=== PATIENT | male | born 1950 | race Caucasian/White ===

== ENCOUNTER 2020-01-05 06:59 | Day surgery (SDC) | payer OTHER, MEDICARE ==
[~2020-01-05] VITALS: Ht 180.3 cm; Wt 136.1 kg
--- NOTE | ~2020-01-05 | O ---
[facility] [place] [address] OPERATIVE REPORT Name: REHAN JACOBSON Room #: 150-2 [facility].#: [id number] Admission: 01/05/20 Attend Phys: Oscar Max MD Discharge: Date of : 50 Report #: [id number] THIS REPORT FOR: cc: ELIZABETH TAYLOR Physician not on staff Oscar Max MD ~ CC: Dr. 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 PROCEDURE: Enucleation of left eye with implantation of 20 mm Medpor sphere with muscles attached to implant, conjunctivoplasty, and temporary tarsorrhaphy. SURGEON: Oscar Max MD. NEEDLE PUNCH MACHINE OPERATOR HELPER: None. ANESTHESIA: General. COMPLICATIONS: None. INDICATIONS FOR SURGERY: This pleasant 69-year-old gentleman is blinded from trauma to his left eye when he was a toddler. His eye has only recently become severely uncomfortable. He presents today for removal of the blind left eye in rehabilitation of the socket to such a degree that he will be able to wear prosthesis. Informed consent was obtained to include but not limited to potential risk for loss of vision, bleeding, infection, failure to improve the problem, the potential need for further surgery or treatment. DESCRIPTION OF PROCEDURE: The patient was taken to the operating room where general anesthesia was administered. The left socket was then anesthetized with Xylocaine with epinephrine mixed with Marcaine and Wydase. The additional anesthetic was administered to the retrobulbar space. An injection anteriorly was much more challenging because of the severe scarring around the limbus, which limited the amount of conjunctiva that could be salvaged. The patient was subsequently prepped and draped in the usual sterile fashion. A lid speculum [facility] [address] [place] [address] OPERATIVE REPORT Name: REHAN JACOBSON Room #: 150-2 [facility]#: [id number] Admission: 01/05/20 Attend Phys: Oscar Max MD Discharge: Date of : 50 Report #: [id number] was placed on the left eye. A 360-degree conjunctival peritomy was performed trying to save as much of the conjunctiva as possible. The oblique quadrants were then bluntly dissected, but were severely scarred from his prior interventions trying to save his eye. The lateral rectus muscle was isolated on a muscle hook and cleaned of its surrounding connective tissue. A double arm pass from a 5-0 Vicryl suture was passed through its insertion. The muscle was then transected from the globe, which revealed the encircling element from his prior retinal detachment surgery. The inferior medial and superior rectus muscles were similarly isolated and secured with double arm 5-0 Vicryl suture passes with locking bites at each margin. The dissection was carried around posteriorly, so that the optic nerve could be approached. The optic nerve was clamped for 3 minutes. The clamp was released and replaced for 3 more minutes. It was released and reclamped one more time for 3 more minutes. The optic nerve was then cut. The superior oblique and inferior oblique muscles were cut with cutting cautery where they attached to the globe. Minimal bleeding ensued. A 20 mm sizing sphere fit behind posterior Tenon's capsule, so a 20 mm Medpor sphere was then vacuum aspirated in antibiotic irrigation solution. It was then reposited behind posterior Tenon's with the aid of an easy glide introducer. Posterior Tenon's were then closed over the implant with interrupted 5-0 Vicryl sutures. The medial and lateral rectus muscles were then brought together to each other and secured with interrupted 5-0 Vicryl sutures. The superior and inferior rectus muscles were then advanced to the medial and lateral rectus muscles and secured with interrupted 5-0 Vicryl sutures. The anterior Tenon's were then closed with interrupted 5-0 Vicryl sutures. At this point, the socket was inspected and the viable conjunctiva estimated. A conjunctivoplasty was performed by drawing a relaxing incision inferotemporally and then rotating the conjunctiva inferomedially to get the deficient conjunctiva to stretch far enough to close over the anterior Tenon's closure. A running 6-0 Vicryl suture was used to close this conjunctivoplasty. A medium size conformer was placed followed by erythromycin ointment. A temporary tarsorrhaphy was then fashioned from a short section of IV tubing and a double arm pass from a 5-0 nylon suture. A Telfa pad was then placed on the eye followed by 2 eye pads, which were held in place with silk tape and Mastisol. The patient was subsequently transported to the recovery area having tolerated the procedures well with no anesthetic or operative complications being noted. By: [id number] Oscar Max MD /nt
[~2020-01-05 06:59] MED LIST: CALCIUM500 MG PO; LISINOPRIL10 MG PO; MULTIPLE VITAM1 EAC4 PO
[2020-01-05 07:32] VITALS: BP 130/58
--- NOTE | 2020-01-10 09:35 | PATH ---
[facility] [address] [place] [address] PATHOLOGY RPT PROCEDURE Name: REHAN VILLAVICENCIO Room #: [facility] M.R.#: [id number] Admission: 01/05/20 Date of : 50 Discharge: 01/05/20 Report #: [id number] Path Case #: [id number] [facility] Accession Number: [id number] . 01 Material submitted: . eye - LEFT EYE SUTURE AT LEFT LATERAL RECTUS. Modifiers: left . 01 Clinical history: . Enucleation left eye Blind painful left eye suture at left lateral rectus History of remote trauma with recent retinal detachment Scleral buckle is still on the globe . 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 (IUV:vasiliy; 01/09/2020) QMS 01/09/2020 1349 Local . 02 Electronically signed: . Bhavana Ramirez MD, Pathologist NPI- [id number] . 01 Gross description: . The specimen is received in formalin, labeled "Rehan Villavicencio, left eye" and consists of an enucleation specimen measuring 2.8 x 2.7 x 2.7 cm with attached optic nerve measuring 0.5 cm in length and 0.7 cm in diameter. There is a suture designating the left lateral rectus. The cornea is Dome shaped, black-brown and cloudy. It is sectioned revealing no lens. The choroid layer is smooth borja-brown with no gross lesions. The vitreous is clear. A full-thickness labor service representative section through the sutured area to include the optic nerve is submitted in A1. (SDY; 01/06/2020) SYU/SYU 01/06/2020 1434 Local . 02 Pathologist provided ICD-10: H16.002, L85.9, H16.402 . 02 CPT . 940473 Specimen Comment: A courtesy copy of this report has been sent to [phone] Specimen Comment: Report sent to Specimen Comment: A duplicate report has been generated due to demographic updates. Performed at: [address] [place] [address] PATHOLOGY RPT PROCEDURE Name: REHAN VILLAVICENCIO Room #: [facility] M.R.#: [id number] Admission: 01/05/20 Date of : 50 Discharge: 01/05/20 Report #: [id number] Path Case #: [id number] [facility] [place] [address] [place] [address] [address], [place], [place] [id number] MD Darryl Sellers MD Phone: [phone] Performed at: [address] [id number] MD Bhavana Ramirez MD Phone: [phone]
== END 2020-01-05 10:15 | disposition home or self-care (01) ==
LOC: OR 06:59 → TBA 07:00 → OR 09:40
DX: H57.12 Ocular pain, left eye (principal); H16.002 Unspecified corneal ulcer, left eye; H16.402 Unspecified corneal neovascularization, left eye; L85.9 Epidermal thickening, unspecified; H54.7 Unspecified visual loss; H11.242 Scarring of conjunctiva, left eye; H33.22 Serous retinal detachment, left eye; I10 Essential (primary) hypertension; G47.33 Obstructive sleep apnea (adult) (pediatric); Z98.890 Other specified postprocedural states; Z79.899 Other long term (current) drug therapy; Z85.46 Personal history of malignant neoplasm of prostate; Z96.653 Presence of artificial knee joint, bilateral; Z87.442 Personal history of urinary calculi
CPT/HCPCS: 50010; 50101; 50386; 50398; 51636; 51854; 53500; 56527; 56528; 56531; 62110; 62900; 64037; 70005